=== PATIENT | male | born 1955 | race Caucasian/White ===

== ENCOUNTER → 2017-01-16 | Outpatient (CLI) | payer BC ==
[~2017-01-16] VITALS: Ht 170.2 cm; Wt 109.4 kg
[~2017-01-16] MED LIST: CADUET 10 MG-101 TAB PO; CALTRATE-600 W600 MG PO; GLUCOPHAGE1000 MG PO; INDOCIN SR 75MG75 MG PO; LEXAPRO 5MG5 MG PO; LIPITOR20 MG PO; MVI; NIACIN 100100 MG/TAB PO; POTASSIUM CHLO10 ME2 PO; PRINIVIL20 MG PO; TYLENOL 325MG325 MG PO; ULORIC80 MG PO; Vitamin B12; [UNRECOGNIZED DRUG - OTHER]
[2017-01-16 13:29] VITALS: BP 159/94; PULSE 76
== END ==
LOC: COL.RAD 12:45
DX: C61 Malignant neoplasm of prostate (principal); R59.0 Localized enlarged lymph nodes

== ENCOUNTER 2022-07-25 10:04 | Day surgery (SDC) | payer MEDICARE, OTHER ==
[~2022-07-25] VITALS: Ht 165.1 cm; Wt 88.0 kg
[2022-07-25] VITALS (8 sets, daily range): BP systolic 111–135; BP diastolic 68–88; PULSE 56–72; TEMP 98
[~2022-07-25 10:04] MED LIST changes: +ASPIRIN 32325 MG/TAB PO; +DURICEF 500MG500 MG PO; +GLUCOPHAGE XR750 MG PO; +NEURONTIN300 MG/CAP PO; +NORCO 325 MG-7.1 TAB PO; +PRINZIDE 25 MG-1 TAB PO; +ROXICODONE 55 MG/TAB PO; +SOLIFENACIN PO
[2022-07-25] MEDS ORDERED: LEXAPRO 10MG10 MG PO (11:24)
[2022-07-25] MEDS ORDERED: NAPROSYN 2250 MG/TAB (11:26)
[2022-07-25] MEDS ORDERED: ASPIRIN E.C. 8181 MG PO (11:27)
[2022-07-25] MEDS ORDERED: LIPITOR20 MG PO (11:29)
[2022-07-25] MEDS ORDERED: ULORIC80 MG PO (11:30)
[2022-07-25] MEDS ORDERED: NEURONTIN300 MG/CAP PO (11:31)
[2022-07-25] MEDS ORDERED: GLUCOPHAGE XR750 MG PO (11:32)
[2022-07-25] MEDS ORDERED: VESICARE10 MG (11:33)
--- NOTE | 2022-07-25 14:20 | NUR ---
1215 RETURNS TO ROOM 9 PER CART. AWAKE, ALERT. RESP UNLABORED. AMBULATES TO RECLINER WITH STANDBY ASSIST. DENIES NAUSEA, ABD/CHEST PAIN OR DYSPHAGIA. VITAL SIGNS OBTAINED. CALL LIGHT AT SIDE. IN ROOM 1230 AWAKE, ALERT. CONVERSES WITH . DENIES PAIN 1245 REMAINS AWAKE, ALERT. DENIES NEEDS [address] [place] WITHOUT NAUSEA. SWALLOWS WITHOUT DIFFICULTY 1330 DR. ZARCO HERE TO VISIT WITH PATIENT. 1350 DISCHARGE INSTRUCTIONS REVIEWED. PATIENT AND VERBALIZE UNDERSTANDING. COPY PROVIDED IN DISCHARGE FOLDER 1409 DRESSES WITH MINIMAL ASSIST FROM . DENIES PAIN. ABD SOFT
== END 2022-07-25 14:20 | disposition home or self-care (01) ==
LOC: SDCO 10:04
DX: T85.590A Other mechanical complication of bile duct prosthesis, initial encounter (principal); K83.8 Other specified diseases of biliary tract; K31.89 Other diseases of stomach and duodenum
CPT/HCPCS: C1769; J2704; J3010; J7030; Q9967